=== PATIENT | female | born 1960 | race Caucasian/White ===

== ENCOUNTER → 2020-12-29 11:57 | Outpatient (CLI) | payer OTHER, MEDICAID, SELFPAY ==
--- NOTE | 2020-12-29 12:03 | DI.MRI.S_ITS ---
BREAST MRI OF THE RIGHT BREAST: 12/29/2020 CLINICAL: Malignant neoplasm of left breast. TECHNIQUE: The patient was placed prone in a dedicated breast imaging coil. Precontrast axial STIR and 3D FLASH without fat saturation sequences were obtained. Both before and after bolus injection of contrast, sequential 1-minute axial 3D FLASH with fat saturation sequences for 3 time points, with subtraction images and maximum intensity projections (MIP's) generated. Delayed sagittal FLASH images with fat saturation were also obtained. 20 cc ProHance gadolinium based IV contrast was administered. Computer-aided detection, including computer algorithm analysis of MRI image data for lesion detection and characterization, pharmacokinetic analysis, with further physician review for interpretation, was performed. COMPARISON: [facility], MM TOMOSYNTHESIS SCREENING BI, 09/07/2020, 15:08. [facility], MM TOMOSYNTHESIS DIAGNOSTIC LT, 10/20/2020, 12:51. [facility], , US LEFT BREAST, 10/20/2020, 13:24. [facility], , US BREAST LT/CORE BIOPSY, 11/21/2020, 13:35. [facility], MM TOMOSYNTHESIS DIAGNOSTIC LT, 11/21/2020, 14:33. FINDINGS: Image quality: Excellent. There is minimal background parenchymal enhancement. Right breast: No suspicious masses or areas of non masslike enhancement. Left breast: In the 9 o'clock position of the right breast at a mid depth, there is a 0.5 x 0.6 x 0.6 cm round enhancing mass with an adjacent biopsy clip artifact indicating the patient's biopsied neoplasm. Kinetic analysis demonstrates medium initial enhancement with predominantly washout characteristics. There are wispy linear enhancing changes posteriorly to the lesion suggesting post biopsy change. At the 2 o'clock position in the anterior breast, there is a T2 hyperintense mildly enhancing mass measuring 0.7 x 0.5 x 0.6 cm. It demonstrates slow peak enhancement, predominantly benign enhancement characteristics. At the five to 6 o'clock position in the anterior breast, there is an irregular and ovoid 0.9 cm mass with mild enhancement and T2 hyperintensity. Miscellaneous: No adenopathy in the axilla or internal mammary chains. The visible portions of the chest wall, liver, lungs, and heart are normal. IMPRESSION: KNOWN BIOPSY PROVEN MALIGNANCY 1. 0.6 cm enhancing mass in the 09:00 o'clock mid left breast corresponding to the patient's known neoplasm. 2. 0.7 cm enhancing mass with less suspicious enhancement characteristics and T2 hyperintensity. Features are most suggestive of a fibroadenoma or lymph node. 3. 0.9 cm fibroadenoma versus lymph node at the 5-6 o'clock anterior left breast. 4. No suspicious enhancement or mass in the right breast. 5. No adenopathy. BIRADS six, known neoplasm COMMENT: The imaging literature indicates that a negative contrast breast MRI examination has a high sensitivity and a moderate specificity for detecting and excluding invasive carcinomas to a detection threshold of 3-5 mm; nonetheless, appropriate clinical and mammographic follow-up are recommended. MRI is not sensitive for detecting DCIS (ductal carcinoma in situ) and may not detect large invasive neoplasms that show only minimal enhancement such as mucinous carcinoma. If there are suspicious calcifications or clinically worrisome palpable masses, then biopsy should still be considered. Invasive neoplasms can be hidden by co-existent and benign enhancement caused by mastitis, hormone therapy effects, radiation therapy, , and recent biopsy or surgery. False positive examinations can occur in a number of circumstances, including breasts that have recently been subject to invasive procedures and those that contain atypical ductal hyperplasia, hormonally stimulated glandular tissue, fat necrosis, or radial scars. This exam was interpreted at Station ID: [id number]. Electronically Signed By: Deborah gibbons/:12/29/2020 14:41:31 ACR BI-RADS Category 6: Known biopsy proven malignancy [id number]
== END ==
PROVIDERS: PCP Physician Assistant; Referring Provider Surgery; Visit Provider Surgery
DX: C50.812 Malignant neoplasm of overlapping sites of left female breast (principal); N63.21 Unspecified lump in the left breast, upper outer quadrant; N63.23 Unspecified lump in the left breast, lower outer quadrant
CPT/HCPCS: 77049; A9579